=== PATIENT | male | born 1940 | race Hispanic/Latino ===

== ENCOUNTER 2020-08-29 12:59 | Inpatient (IN) | payer MEDICARE, OTHER ==
[~2020-08-29] VITALS: Ht 160 cm; Wt 63.5 kg
[2020-08-29] MEDS ORDERED: SODIUM CHLORIDE 0.9% 250ML 250 ML IV ONE (13:45)
[2020-08-29 14:47] LABS: BASOPHILS % 0.5 % (0.0-1.0); EOSINOPHILS # (AUTO) 0.1 (0.0-0.4); EOSINOPHILS % 1.7 % (0.0-6.0); LYMPHOCYTES # (AUTO) 0.9 (1.0-3.2); LYMPHOCYTES % 14.9 % (18.0-39.1); MEAN CORPUSCULAR HGB CONC 32.2 g/dL (31-35); MEAN CORPUSCULAR VOLUME 96.1 fL (81-99); MONOCYTES # (AUTO) 0.3 (0.2-0.8); MONOCYTES % 5.2 % (4.4-11.3); NEUTROPHILS # (AUTO) 4.5 (2.1-6.9); NEUTROPHILS % 75.7 % (38.7-80.0); PLATELET COUNT 443 x10e3/uL (140-360); RED BLOOD COUNT 1.55 x10e6/uL (4.3-5.7); RED CELL DISTRIBUTION WIDTH 17.5 % (11.7-14.4)
[2020-08-29 14:48] LABS: HEMOGLOBIN 4.8 g/dL (14.0-18.0)
[2020-08-29 14:49] LABS: HEMATOCRIT 14.9 % (38.2-49.6)
[2020-08-29 15:09] LABS: ALANINE AMINOTRANSFERASE 11 IU/L (0-55); ALBUMIN 3.9 g/dL (3.5-5.0); ALBUMIN/GLOBULIN RATIO 1.1 (0.8-2.0); ALKALINE PHOSPHATASE 89 IU/L (40-150); ANION GAP 12.6 mmol/L (8-16); BLOOD UREA NITROGEN 18 mg/dL (7-26); BUN/CREATININE RATIO 22 (6-25); CALCIUM 8.4 mg/dL (8.4-10.2); CARBON DIOXIDE 24 mmol/L (22-29); CHLORIDE 107 mmol/L (98-107); CREATININE, SERUM 0.83 mg/dL (0.72-1.25); EST GLOMERULAR FILTRATION RATE > 60 ML/MIN (60-); GLUCOSE 119 mg/dL (74-118); POTASSIUM 4.6 mmol/L (3.5-5.1); SODIUM 139 mmol/L (136-145)
[2020-08-29 16:48] VITALS: BP 128/71
[2020-08-29] MEDS ORDERED: SODIUM CHLORIDE 0.9% 250ML 250 ML ONE (17:57)
[2020-08-29 18:01] VITALS: BP 128/71
[2020-08-29] MEDS ORDERED: IRON (18:06)
[2020-08-29 20:00] VITALS: BP 110/60
[2020-08-29 21:00] VITALS: BP 110/60
[2020-08-30] VITALS (8 sets, daily range): BP systolic 107–134; BP diastolic 58–67
[2020-08-30 05:19] LABS: BASOPHILS % 0.5 % (0.0-1.0); EOSINOPHILS # (AUTO) 0.1 (0.0-0.4); EOSINOPHILS % 1.8 % (0.0-6.0); LYMPHOCYTES # (AUTO) 0.8 (1.0-3.2); LYMPHOCYTES % 14.8 % (18.0-39.1); MEAN CORPUSCULAR HEMOGLOBIN 30.1 pg (28-32); MEAN CORPUSCULAR HGB CONC 32.3 g/dL (31-35); MEAN CORPUSCULAR VOLUME 93.3 fL (81-99); MONOCYTES # (AUTO) 0.3 (0.2-0.8); MONOCYTES % 5.6 % (4.4-11.3); NEUTROPHILS # (AUTO) 4.2 (2.1-6.9); NEUTROPHILS % 75.3 % (38.7-80.0); PLATELET COUNT 345 x10e3/uL (140-360); RED BLOOD COUNT 2.09 x10e6/uL (4.3-5.7); RED CELL DISTRIBUTION WIDTH 16.4 % (11.7-14.4)
[2020-08-30 05:25] LABS: HEMATOCRIT 19.5 % (38.2-49.6); HEMOGLOBIN 6.3 g/dL (14.0-18.0)
[2020-08-30 05:46] LABS: BLOOD UREA NITROGEN 17 mg/dL (7-26); BUN/CREATININE RATIO 23 (6-25); CALCIUM 8.1 mg/dL (8.4-10.2); CARBON DIOXIDE 23 mmol/L (22-29); CHLORIDE 106 mmol/L (98-107); CREATININE, SERUM 0.75 mg/dL (0.72-1.25); EST GLOMERULAR FILTRATION RATE > 60 ML/MIN (60-); GLUCOSE 106 mg/dL (74-118); SODIUM 137 mmol/L (136-145)
[2020-08-30] MEDS ORDERED: SODIUM CHLORIDE 0.9% 250ML 250 ML IV NR (06:45)
[2020-08-30] MEDS ORDERED: BISACODYL 5 MG TAB EC PO ONE ×3 (18:00→22:00)
[2020-08-30] MEDS ORDERED: CITRATE OF MAGNESIA 300ML BOTTLE PO ONE (23:00)
[2020-08-31] VITALS (8 sets, daily range): BP systolic 119–138; BP diastolic 67–77
[2020-08-31] MEDS ORDERED: BISACODYL 5 MG TAB EC PO ONE (00:45)
[2020-08-31 06:15] LABS: BASOPHILS % 0.9 % (0.0-1.0); EOSINOPHILS # (AUTO) 0.1 (0.0-0.4); EOSINOPHILS % 2.7 % (0.0-6.0); HEMATOCRIT 27.7 % (38.2-49.6); HEMOGLOBIN 9.2 g/dL (14.0-18.0); LYMPHOCYTES # (AUTO) 1.1 (1.0-3.2); LYMPHOCYTES % 23.5 % (18.0-39.1); MEAN CORPUSCULAR HEMOGLOBIN 29.7 pg (28-32); MEAN CORPUSCULAR HGB CONC 33.2 g/dL (31-35); MEAN CORPUSCULAR VOLUME 89.4 fL (81-99); MONOCYTES # (AUTO) 0.3 (0.2-0.8); MONOCYTES % 6.9 % (4.4-11.3); NEUTROPHILS # (AUTO) 2.9 (2.1-6.9); NEUTROPHILS % 63.8 % (38.7-80.0); PLATELET COUNT 352 x10e3/uL (140-360); RED CELL DISTRIBUTION WIDTH 16.5 % (11.7-14.4)
[2020-08-31] MEDS ORDERED: CITRATE OF MAGNESIA 300ML BOTTLE PO ONE ×2 (07:00)
[2020-08-31] MEDS ORDERED: LIDOCAINE HCL 2% LOCAL INJ 5 ML SDV VIAL INJ ONE (13:23)
[2020-08-31] MEDS ORDERED: PROPOFOL IV EMULSION 10 MG/ML 20 ML VIAL ONE (13:23)
[2020-09-01 00:01] VITALS: BP 124/75
[2020-09-01 05:14] VITALS: BP 115/76
[2020-09-01 08:05] VITALS: BP 141/76
[2020-09-01 09:29] LABS: BASOPHILS % 0.7 % (0.0-1.0); EOSINOPHILS # (AUTO) 0.1 (0.0-0.4); EOSINOPHILS % 0.8 % (0.0-6.0); HEMATOCRIT 28.6 % (38.2-49.6); HEMOGLOBIN 9.6 g/dL (14.0-18.0); LYMPHOCYTES # (AUTO) 1.1 (1.0-3.2); LYMPHOCYTES % 17.6 % (18.0-39.1); MEAN CORPUSCULAR HGB CONC 33.6 g/dL (31-35); MEAN CORPUSCULAR VOLUME 89.4 fL (81-99); MONOCYTES # (AUTO) 0.4 (0.2-0.8); MONOCYTES % 5.8 % (4.4-11.3); NEUTROPHILS # (AUTO) 4.5 (2.1-6.9); NEUTROPHILS % 74.1 % (38.7-80.0); PLATELET COUNT 362 x10e3/uL (140-360); RED CELL DISTRIBUTION WIDTH 15.9 % (11.7-14.4)
[2020-09-01 09:41] VITALS: BP 141/76
[2020-09-01 13:17] VITALS: BP 131/66
== END 2020-09-01 12:50 | disposition home or self-care (01) | DRG 391 ==
LOC: ER 13:51 → ERHOLD 15:33 → MED/SURG2 16:40
PROVIDERS: ADMIT Internal Medicine; ATTEND Internal Medicine
PROC: 30233N1 Transfusion of Nonautologous Red Blood Cells into Peripheral Vein, Percutaneous Approach (ICD-10-PCS; principal; 2020-08-29)
PROC: 30233N1 Transfusion of Nonautologous Red Blood Cells into Peripheral Vein, Percutaneous Approach (ICD-10-PCS; 2020-08-29)
PROC: 0D738ZZ Dilation of Lower Esophagus, Via Natural or Artificial Opening Endoscopic (ICD-10-PCS; 2020-08-31)
PROC: 0DJD8ZZ Inspection of Lower Intestinal Tract, Via Natural or Artificial Opening Endoscopic (ICD-10-PCS; 2020-08-31)
PROC: 0DB78ZX Excision of Stomach, Pylorus, Via Natural or Artificial Opening Endoscopic, Diagnostic (ICD-10-PCS; 2020-08-31 12:30)
DX: K57.30 Diverticulosis of large intestine without perforation or abscess without bleeding (principal); K29.71 Gastritis, unspecified, with bleeding; D64.9 Anemia, unspecified; R13.10 Dysphagia, unspecified; K59.00 Constipation, unspecified; K20.90 Esophagitis, unspecified without bleeding; K22.2 Esophageal obstruction; K64.8 Other hemorrhoids; Z20.822 Contact with and (suspected) exposure to COVID-19
CPT/HCPCS: 36415; 43239; 45378; 80048; 80053; 82270; 82607; 82728; 82746; 85025; 85045; 86850; 86900; 86920; 88305; 88312; 99284; J2001; J7050; P9016; U0002

== ENCOUNTER 2021-01-02 09:51 | Emergency (ER) | payer MEDICARE, OTHER ==
[~2021-01-02] VITALS: Ht 160 cm; Wt 63.5 kg
[~2021-01-02 09:51] MED LIST: IRON
[2021-01-02] MEDS ORDERED: SODIUM CHLORIDE 0.9% 1000ML 1,000 ML IV STA (10:24)
[2021-01-02] MEDS ORDERED: PANTOPRAZOLE 40 MG 10ML VIAL IV STA (10:24)
[2021-01-02 11:37] LABS: CLARITY,URINE CLEAR (CLEAR); COLOR,URINE YELLOW (YELLOW); KETONES,URINE NEGATIVE (NEGATIVE); LEUKOCYTE ESTERASE ,URINE NEGATIVE (NEGATIVE); NITRITE,URINE NEGATIVE (NEGATIVE); PROTEIN,URINE DIPSTICK NEGATIVE (NEGATIVE); URINE UROBILINOGEN >=8 mg/dL (0.2 - 1)
[2021-01-02 11:37] LABS: BASOPHILS % 0.6 % (0.0-1.0); EOSINOPHILS % 0.6 % (0.0-6.0); HEMATOCRIT 21.8 % (38.2-49.6); HEMOGLOBIN 7.2 g/dL (14.0-18.0); LYMPHOCYTES # (AUTO) 1.1 (1.0-3.2); LYMPHOCYTES % 23.1 % (18.0-39.1); MEAN CORPUSCULAR HEMOGLOBIN 31.6 pg (28-32); MEAN CORPUSCULAR VOLUME 95.6 fL (81-99); MONOCYTES # (AUTO) 0.3 (0.2-0.8); NEUTROPHILS # (AUTO) 3.3 (2.1-6.9); PLATELET COUNT 447 x10e3/uL (140-360); RED BLOOD COUNT 2.28 x10e6/uL (4.3-5.7); RED CELL DISTRIBUTION WIDTH 19.9 % (11.7-14.4)
[2021-01-02 11:59] LABS: BACTERIA,URINE MODERATE /HPF; EPITHELIAL CELLS,URINE RARE /LPF; RBC,URINE 0-5 /HPF (0-5); TRANSITIONAL EPI CELLS,URINE RARE; WBC,URINE (MAN) 0-5 /HPF (0-5)
[2021-01-02 12:11] LABS: INR 0.89; PARTIAL THROMBOPLASTIN TIME 27.5 seconds (23.8-35.5); PROTHROMBIN TIME 12.6 seconds (11.9-14.5)
[2021-01-02 12:21] LABS: ALANINE AMINOTRANSFERASE 80 IU/L (0-55); ALBUMIN 3.9 g/dL (3.5-5.0); ALKALINE PHOSPHATASE 63 IU/L (40-150); ANION GAP 15.2 mmol/L (8-16); BLOOD UREA NITROGEN 20 mg/dL (7-26); BUN/CREATININE RATIO 18 (6-25); CALCIUM 8.7 mg/dL (8.4-10.2); CARBON DIOXIDE 21 mmol/L (22-29); CHLORIDE 106 mmol/L (98-107); CREATINE KINASE 76 IU/L (30-200); CREATININE, SERUM 1.09 mg/dL (0.72-1.25); EST GLOMERULAR FILTRATION RATE > 60 ML/MIN (60-); GLUCOSE 105 mg/dL (74-118); POTASSIUM 4.2 mmol/L (3.5-5.1); SODIUM 138 mmol/L (136-145)
[2021-01-02 13:18] VITALS: BP 150/72
== END 2021-01-02 13:23 | disposition home or self-care (01) ==
LOC: ER 10:29
DX: R42 Dizziness and giddiness (principal); D64.9 Anemia, unspecified
CPT/HCPCS: 36415; 70450; 80053; 81001; 82550; 82553; 83735; 83880; 84484; 85025; 85610; 85730; 86850; 86900; 93005; 99284; C9113; J7030

== ENCOUNTER 2021-07-05 12:54 | Observation (INO) | payer MEDICARE, OTHER ==
[~2021-07-05] VITALS: Ht 160 cm; Wt 63.5 kg
[2021-07-05] MEDS ORDERED: SODIUM CHLORIDE 0.9% 1000ML 1,000 ML IV STA (14:10)
[2021-07-05 14:35] LABS: BASOPHILS % 0.3 % (0.0-1.0); EOSINOPHILS % 1.1 % (0.0-6.0); LYMPHOCYTES # (AUTO) 0.9 (1.0-3.2); LYMPHOCYTES % 24.2 % (18.0-39.1); MEAN CORPUSCULAR HEMOGLOBIN 34.6 pg (28-32); MEAN CORPUSCULAR HGB CONC 31.6 g/dL (31-35); MEAN CORPUSCULAR VOLUME 109.3 fL (81-99); MONOCYTES # (AUTO) 0.2 (0.2-0.8); MONOCYTES % 5.3 % (4.4-11.3); NEUTROPHILS # (AUTO) 2.5 (2.1-6.9); PLATELET COUNT 255 x10e3/uL (140-360); RED BLOOD COUNT 1.62 x10e6/uL (4.3-5.7); RED CELL DISTRIBUTION WIDTH 26.8 % (11.7-14.4)
[2021-07-05 14:42] LABS: HEMATOCRIT 17.7 % (38.2-49.6); HEMOGLOBIN 5.6 g/dL (14.0-18.0)
[2021-07-05 14:55] LABS: ALBUMIN 3.6 g/dL (3.5-5.0); ANION GAP 13.5 mmol/L (8-16); CALCIUM 8.2 mg/dL (8.4-10.2); CREATININE, SERUM 1.05 mg/dL (0.72-1.25); POTASSIUM 4.5 mmol/L (3.5-5.1)
[2021-07-05] MEDS ORDERED: ONDANSETRON HCL INJ 2MG/ML 2ML 2 MG/ML VIAL IV PRN (16:30)
[2021-07-05 21:18] VITALS: BP 136/72
[2021-07-05 21:22] VITALS: BP 136/72
[2021-07-05 21:29] VITALS: BP 136/72
[2021-07-05 22:34] LABS: FERRITIN 891.04 ng/mL (21.81-274.66)
[2021-07-05] MEDS ORDERED: FOLIC ACID 1 MG TAB PO ONE (23:15)
[2021-07-05] MEDS ORDERED: CYANOCOBALAMIN INJ 1,000 MCG/ML VIAL IM ONE (23:15)
[2021-07-05 23:35] VITALS: BP 123/64
[2021-07-06] VITALS (7 sets, daily range): BP systolic 124–137; BP diastolic 56–75
[2021-07-06 05:47] LABS: BASOPHILS % 0.4 % (0.0-1.0); EOSINOPHILS # (AUTO) 0.1 (0.0-0.4); EOSINOPHILS % 2.7 % (0.0-6.0); HEMATOCRIT 27.9 % (38.2-49.6); HEMOGLOBIN 9.4 g/dL (14.0-18.0); LYMPHOCYTES # (AUTO) 1.3 (1.0-3.2); LYMPHOCYTES % 25.7 % (18.0-39.1); MEAN CORPUSCULAR HEMOGLOBIN 31.9 pg (28-32); MEAN CORPUSCULAR HGB CONC 33.7 g/dL (31-35); MEAN CORPUSCULAR VOLUME 94.6 fL (81-99); MONOCYTES # (AUTO) 0.3 (0.2-0.8); MONOCYTES % 5.5 % (4.4-11.3); NEUTROPHILS # (AUTO) 3.1 (2.1-6.9); NEUTROPHILS % 64.3 % (38.7-80.0); PLATELET COUNT 238 x10e3/uL (140-360); RED BLOOD COUNT 2.95 x10e6/uL (4.3-5.7); RED CELL DISTRIBUTION WIDTH 24.3 % (11.7-14.4)
[2021-07-06 06:19] LABS: ALBUMIN 3.2 g/dL (3.5-5.0); ANION GAP 12.2 mmol/L (8-16); CREATININE, SERUM 0.93 mg/dL (0.72-1.25); POTASSIUM 4.2 mmol/L (3.5-5.1)
[2021-07-06] MEDS: CYANOCOBALAMIN INJ 1,000 MCG/ML VIAL IM SCH (09:02)
[2021-07-06] MEDS: FOLIC ACID 1 MG TAB PO SCH (09:02)
[2021-07-06] MEDS ORDERED: ONDANSETRON HCL 4 MG ORAL DISINTEGRATING TAB PO PRN (11:00)
[2021-07-06] MEDS ORDERED: BISACODYL 5 MG TAB EC PO ONE (23:30)
[2021-07-07] VITALS: BP 132/75
[2021-07-07] MEDS ORDERED: BISACODYL 5 MG TAB EC PO ONE
[2021-07-07 04:00] VITALS: BP 132/76
[2021-07-07 05:33] LABS: HEMATOCRIT 26.9 % (38.2-49.6); HEMOGLOBIN 9.2 g/dL (14.0-18.0); MEAN CORPUSCULAR HEMOGLOBIN 32.3 pg (28-32); MEAN CORPUSCULAR HGB CONC 34.2 g/dL (31-35); MEAN CORPUSCULAR VOLUME 94.4 fL (81-99); PLATELET COUNT 241 x10e3/uL (140-360); RED BLOOD COUNT 2.85 x10e6/uL (4.3-5.7); RED CELL DISTRIBUTION WIDTH 23.9 % (11.7-14.4)
[2021-07-07 07:15] LABS: LYMPHOCYTES % (MANUAL) 20 % (19-48); MONOCYTES % (MANUAL) 5 % (3.4-9.0); MYELOCYTES % (MANUAL) 1 % (0-0); NEUTROPHILS % (MANUAL) 74 % (40-74); PLATELET ESTIMATE ADEQUATE
[2021-07-07 07:16] LABS: PLATELET MORPHOLOGY COMMENT FEW LARGE
[2021-07-07 07:17] LABS: RBC MORPHOLOGY COMMENT NORMAL
[2021-07-07 08:22] VITALS: BP 152/75
[2021-07-07] MEDS: CYANOCOBALAMIN INJ 1,000 MCG/ML VIAL IM SCH (09:00)
[2021-07-07] MEDS: FOLIC ACID 1 MG TAB PO SCH (09:00)
[2021-07-07 11:13] VITALS: BP 152/75
[2021-07-07 11:41] VITALS: BP 141/69
[2021-07-07 15:43] VITALS: BP 136/67
== END 2021-07-07 16:00 | disposition home or self-care (01) ==
LOC: ER 14:04 → ERHOLD 16:39 → MED/SURG 21:13
PROVIDERS: ADMIT Internal Medicine; ATTEND Internal Medicine
DX: D53.1 Other megaloblastic anemias, not elsewhere classified (principal); E77.8 Other disorders of glycoprotein metabolism; E88.09 Other disorders of plasma-protein metabolism, not elsewhere classified; Z20.822 Contact with and (suspected) exposure to COVID-19
CPT/HCPCS: 36415 ×3; 80053 ×2; 82270; 82607; 82728; 82746; 83010; 83540; 83615; 84466; 85007; 85025 ×2; 85027; 85045; 86850; 86900; 86920; 93005; 99284; G0378 ×3; J3420 ×2; J7030; P9016; U0002

== ENCOUNTER 2022-06-19 10:14 | Inpatient (IN) | payer MEDICARE, OTHER ==
[~2022-06-19] VITALS: Ht 312.4 cm; Wt 63.5 kg
[2022-06-19 10:58] LABS: BASOPHILS % 0.4 % (0.0-1.0); EOSINOPHILS # (AUTO) 0.3 (0.0-0.4); EOSINOPHILS % 9.4 % (0.0-6.0); LYMPHOCYTES # (AUTO) 0.8 (1.0-3.2); MEAN CORPUSCULAR HEMOGLOBIN 27.6 pg (28-32); MEAN CORPUSCULAR HGB CONC 30.3 g/dL (31-35); MONOCYTES # (AUTO) 0.4 (0.2-0.8); MONOCYTES % 13.7 % (4.4-11.3); NEUTROPHILS # (AUTO) 1.3 (2.1-6.9); PLATELET COUNT 244 x10e3/uL (140-360); RED BLOOD COUNT 1.34 x10e6/uL (4.3-5.7); RED CELL DISTRIBUTION WIDTH 15.2 % (11.7-14.4)
[2022-06-19 11:03] LABS: HEMATOCRIT 12.2 % (38.2-49.6); HEMOGLOBIN 3.7 g/dL (14.0-18.0)
[2022-06-19 11:13] LABS: ALBUMIN 3.4 g/dL (3.5-5.0); ANION GAP 15.4 mmol/L (8-16); CALCIUM 8.1 mg/dL (8.4-10.2); CREATININE, SERUM 1.23 mg/dL (0.72-1.25); POTASSIUM 3.4 mmol/L (3.5-5.1)
[2022-06-19] MEDS ORDERED: SODIUM CHLORIDE 0.9% 250ML 250 ML IV ONE (11:45)
[2022-06-19 13:14] LABS: INR 1.17; PROTHROMBIN TIME 15.9 seconds (11.9-14.5)
[2022-06-19 17:28] VITALS: BP 122/62
[2022-06-19] MEDS ORDERED: SODIUM CHLORIDE 0.9% 250ML 250 ML ONE (18:28)
[2022-06-19 18:32] VITALS: BP 122/62
[2022-06-19 21:00] VITALS: BP 122/62
[2022-06-19 22:59] LABS: % IRON SATURATION 95 % (15-50); IRON 193 ug/dL (65-175); TOTAL IRON BINDING CAPACITY 204 ug/dL (261-478); TRANSFERRIN 146 mg/dL (174-364)
[2022-06-19 23:43] VITALS: BP 129/63
[2022-06-20] MEDS ORDERED: FOLIC ACID 1 MG TAB PO ONE
[2022-06-20 05:03] VITALS: BP 128/55
[2022-06-20 05:45] LABS: BASOPHILS # (AUTO) 0.1 (0.0-0.1); BASOPHILS % 1.9 % (0.0-1.0); EOSINOPHILS # (AUTO) 0.5 (0.0-0.4); EOSINOPHILS % 17.6 % (0.0-6.0); HEMATOCRIT 21.4 % (38.2-49.6); HEMOGLOBIN 7.2 g/dL (14.0-18.0); LYMPHOCYTES # (AUTO) 0.8 (1.0-3.2); LYMPHOCYTES % 28.8 % (18.0-39.1); MEAN CORPUSCULAR HEMOGLOBIN 30.6 pg (28-32); MEAN CORPUSCULAR HGB CONC 33.6 g/dL (31-35); MEAN CORPUSCULAR VOLUME 91.1 fL (81-99); MONOCYTES # (AUTO) 0.4 (0.2-0.8); MONOCYTES % 13.5 % (4.4-11.3); PLATELET COUNT 180 x10e3/uL (140-360); RED BLOOD COUNT 2.35 x10e6/uL (4.3-5.7); RED CELL DISTRIBUTION WIDTH 14.4 % (11.7-14.4)
[2022-06-20 06:06] LABS: ANION GAP 12.4 mmol/L (8-16); CALCIUM 7.8 mg/dL (8.4-10.2); CREATININE, SERUM 1.05 mg/dL (0.72-1.25); POTASSIUM 3.4 mmol/L (3.5-5.1)
[2022-06-20 07:11] LABS: BAND NEUTROPHILS % (MANUAL) 1 %; EOSINOPHILS % (MANUAL) 20 % (0-7); LYMPHOCYTES % (MANUAL) 22 % (19-48); MONOCYTES % (MANUAL) 11 % (3.4-9.0); NEUTROPHILS % (MANUAL) 44 % (40-74)
[2022-06-20 07:12] LABS: PLATELET ESTIMATE ADEQUATE; PLATELET MORPHOLOGY COMMENT NORMAL; RBC MORPHOLOGY COMMENT NORMAL
[2022-06-20 08:43] VITALS: BP 127/66
[2022-06-20] MEDS ORDERED: FOLIC ACID 1 MG TAB PO SCH (09:00)
[2022-06-20] MEDS: FOLIC ACID 1 MG TAB PO SCH ×2 (09:04→19:21)
[2022-06-20] MEDS ORDERED: IOPAMIDOL 370 MG/ML 100 ML INFUS..BTL INJ ONE (12:19)
[2022-06-20 13:11] VITALS: BP 126/66
[2022-06-20 16:22] VITALS: BP 126/67
[2022-06-20 20:00] VITALS: BP_SYST 126; BP_SYST 127; BP_DIAS 59; BP_DIAS 67
[2022-06-21] VITALS (7 sets, daily range): BP systolic 118–134; BP diastolic 53–68
[2022-06-21] MEDS: FOLIC ACID 1 MG TAB PO SCH ×2 (09:18→17:33)
[2022-06-21] MEDS ORDERED: MAGNESIUM HYDROXIDE 30 ML UDC PO PRN (09:30)
[2022-06-21] MEDS ORDERED: MAGNESIUM HYDROXIDE 30 ML UDC PO ONE (10:00)
[2022-06-21] MEDS ORDERED: BISACODYL 5 MG TAB EC PO ONE (10:00)
[2022-06-21] MEDS ORDERED: POTASSIUM CHLORIDE 10MEQ EA PO ONE (10:00)
[2022-06-21] MEDS: CHOLECALCIFEROL 400 UNIT TAB PO SCH (10:40)
[2022-06-21] MEDS: ASCORBIC ACID 500 MG TAB PO SCH ×2 (10:40→17:33)
[2022-06-21] MEDS: DEXAMETHASONE 4 MG TAB PO SCH ×2 (10:41→17:33)
[2022-06-21] MEDS: SENNA-S TABLET PO SCH ×2 (10:47→17:33)
[2022-06-21 13:34] LABS: CLARITY,URINE CLEAR (CLEAR); COLOR,URINE YELLOW (YELLOW); KETONES,URINE TRACE (NEGATIVE); LEUKOCYTE ESTERASE ,URINE NEGATIVE (NEGATIVE); NITRITE,URINE NEGATIVE (NEGATIVE); PROTEIN,URINE DIPSTICK 2+ (NEGATIVE); URINE UROBILINOGEN 1 mg/dL (0.2 - 1)
[2022-06-21 13:49] LABS: EPITHELIAL CELLS,URINE RARE /LPF; RBC,URINE 0-5 /HPF (0-5)
[2022-06-21 13:50] LABS: BACTERIA,URINE MANY /HPF; WBC,URINE (MAN) 0-5 /HPF (0-5)
[2022-06-21 16:17] LABS: HEMATOCRIT 22.1 % (38.2-49.6); HEMOGLOBIN 7.2 g/dL (14.0-18.0); MEAN CORPUSCULAR HEMOGLOBIN 28.3 pg (28-32); MEAN CORPUSCULAR HGB CONC 32.6 g/dL (31-35); PLATELET COUNT 144 x10e3/uL (140-360); RED BLOOD COUNT 2.54 x10e6/uL (4.3-5.7); RED CELL DISTRIBUTION WIDTH 14.7 % (11.7-14.4)
[2022-06-21 17:16] LABS: EOSINOPHILS % (MANUAL) 2 % (0-7); LYMPHOCYTES % (MANUAL) 23 % (19-48); MONOCYTES % (MANUAL) 14 % (3.4-9.0); NEUTROPHILS % (MANUAL) 60 % (40-74)
[2022-06-21] MEDS: ENOXAPARIN 30 MG/0.3 ML SYR SC SCH (17:32)
[2022-06-21] MEDS: FAMOTIDINE 20 MG TAB PO SCH (17:35)
[2022-06-21 18:11] LABS: ANISOCYTOSIS SLIGHT; PLATELET ESTIMATE ADEQUATE; PLATELET MORPHOLOGY COMMENT NORMAL; RBC MORPHOLOGY COMMENT ABNORMAL; SPHEROCYTES FEW
[2022-06-22] VITALS (8 sets, daily range): BP systolic 107–139; BP diastolic 54–64
[2022-06-22 07:07] LABS: BASOPHILS % 0.8 % (0.0-1.0); EOSINOPHILS # (AUTO) 0.1 (0.0-0.4); EOSINOPHILS % 1.9 % (0.0-6.0); HEMATOCRIT 21.9 % (38.2-49.6); HEMOGLOBIN 7.2 g/dL (14.0-18.0); LYMPHOCYTES # (AUTO) 0.8 (1.0-3.2); LYMPHOCYTES % 28.7 % (18.0-39.1); MEAN CORPUSCULAR HEMOGLOBIN 28.6 pg (28-32); MEAN CORPUSCULAR HGB CONC 32.9 g/dL (31-35); MEAN CORPUSCULAR VOLUME 86.9 fL (81-99); MONOCYTES # (AUTO) 0.4 (0.2-0.8); MONOCYTES % 15.7 % (4.4-11.3); NEUTROPHILS # (AUTO) 1.3 (2.1-6.9); NEUTROPHILS % 49.8 % (38.7-80.0); PLATELET COUNT 143 x10e3/uL (140-360); RED BLOOD COUNT 2.52 x10e6/uL (4.3-5.7); RED CELL DISTRIBUTION WIDTH 14.7 % (11.7-14.4)
[2022-06-22 07:27] LABS: INR 1.21; PROTHROMBIN TIME 16.4 seconds (11.9-14.5)
[2022-06-22] MEDS: FAMOTIDINE 20 MG TAB PO SCH ×2 (07:30→17:49)
[2022-06-22 07:34] LABS: ANION GAP 14.7 mmol/L (8-16); CALCIUM 8.2 mg/dL (8.4-10.2); CREATININE, SERUM 0.85 mg/dL (0.72-1.25); POTASSIUM 3.7 mmol/L (3.5-5.1)
[2022-06-22] MEDS: DEXAMETHASONE 4 MG TAB PO SCH ×2 (09:00→17:50)
[2022-06-22] MEDS: FOLIC ACID 1 MG TAB PO SCH ×2 (09:00→17:49)
[2022-06-22] MEDS: SENNA-S TABLET PO SCH ×2 (09:00→17:50)
[2022-06-22] MEDS: ASCORBIC ACID 500 MG TAB PO SCH ×2 (09:00→17:50)
[2022-06-22] MEDS: CHOLECALCIFEROL 400 UNIT TAB PO SCH (09:00)
[2022-06-22] MEDS ORDERED: FENTANYL CITRATE/PF 100MCG/2 ML INJ ONE (12:54)
[2022-06-22] MEDS ORDERED: MIDAZOLAM HCL 2 MG/2 ML VIAL ONE (12:54)
[2022-06-22] MEDS ORDERED: SODIUM CHLORIDE 0.9% 250ML 250 ML ONE (12:55)
[2022-06-22] MEDS: ENOXAPARIN 30 MG/0.3 ML SYR SC SCH (17:50)
[2022-06-23] VITALS: BP 100/62
[2022-06-23 04:00] VITALS: BP 121/62
[2022-06-23 07:36] LABS: BASOPHILS % 0.7 % (0.0-1.0); EOSINOPHILS # (AUTO) 0.1 (0.0-0.4); EOSINOPHILS % 2.1 % (0.0-6.0); HEMATOCRIT 23.2 % (38.2-49.6); HEMOGLOBIN 7.8 g/dL (14.0-18.0); LYMPHOCYTES # (AUTO) 0.9 (1.0-3.2); LYMPHOCYTES % 32.6 % (18.0-39.1); MEAN CORPUSCULAR HGB CONC 33.6 g/dL (31-35); MEAN CORPUSCULAR VOLUME 86.2 fL (81-99); MONOCYTES # (AUTO) 0.4 (0.2-0.8); MONOCYTES % 15.6 % (4.4-11.3); NEUTROPHILS # (AUTO) 1.3 (2.1-6.9); NEUTROPHILS % 46.2 % (38.7-80.0); PLATELET COUNT 147 x10e3/uL (140-360); RED BLOOD COUNT 2.69 x10e6/uL (4.3-5.7); RED CELL DISTRIBUTION WIDTH 15.1 % (11.7-14.4)
[2022-06-23 08:16] VITALS: BP 131/63
[2022-06-23 09:00] VITALS: BP 131/63
[2022-06-23] MEDS: SENNA-S TABLET PO SCH (09:00)
[2022-06-23] MEDS: FOLIC ACID 1 MG TAB PO SCH (10:38)
[2022-06-23] MEDS: CHOLECALCIFEROL 400 UNIT TAB PO SCH (10:38)
[2022-06-23] MEDS: ASCORBIC ACID 500 MG TAB PO SCH (10:39)
[2022-06-23] MEDS: FAMOTIDINE 20 MG TAB PO SCH (10:39)
[2022-06-23] MEDS: DEXAMETHASONE 4 MG TAB PO SCH (10:39)
[2022-06-23 11:34] VITALS: BP 125/56
== END 2022-06-23 13:57 | disposition home or self-care (01) | DRG 811 ==
LOC: ER 10:28 → ERHOLD 12:20 → MED/SURG2 14:42
PROVIDERS: ADMIT Internal Medicine; ATTEND Internal Medicine
PROC: 30233N1 Transfusion of Nonautologous Red Blood Cells into Peripheral Vein, Percutaneous Approach (ICD-10-PCS; 2022-06-19)
PROC: 07DR3ZX Extraction of Iliac Bone Marrow, Percutaneous Approach, Diagnostic (ICD-10-PCS; principal; 2022-06-21)
DX: D46.9 Myelodysplastic syndrome, unspecified (principal); U07.1 COVID-19; D64.9 Anemia, unspecified; I25.10 Atherosclerotic heart disease of native coronary artery without angina pectoris; I10 Essential (primary) hypertension; D72.819 Decreased white blood cell count, unspecified; R91.1 Solitary pulmonary nodule; R53.81 Other malaise; E53.8 Deficiency of other specified B group vitamins; K57.90 Diverticulosis of intestine, part unspecified, without perforation or abscess without bleeding; R30.0 Dysuria
CPT/HCPCS: 36415; 74174; 74470; 80048; 80053; 81001; 81161; 81220; 82270; 82607; 82746; 83540; 84466; 85007; 85025; 85027; 85045; 85610; 86850; 86900; 86920; 87086; 87400; 93005; 94799; 99284; J0696; J1650; J2250; J3010; J7050; P9016; Q9967